=== PATIENT | female | born 1965 | race Native Hawaiian/Other Pacific Islander ===

== ENCOUNTER 2020-08-25 08:16 | Outpatient (CLI) | payer OTHER | END 2020-08-25 22:04 | disposition home or self-care (01) | LOC: INF 08:16 | PROVIDERS: ATTEND Internal Medicine | DX: Z23 Encounter for immunization (principal) | CPT/HCPCS: 96372 ==

== ENCOUNTER 2020-09-16 13:27 | Outpatient (CLI) | payer OTHER | END 2020-09-16 22:23 | disposition home or self-care (01) | LOC: INF 13:27 | PROVIDERS: ATTEND Internal Medicine | DX: Z23 Encounter for immunization (principal) | CPT/HCPCS: 96372 ==